=== PATIENT | female | born 1970 | race Caucasian/White ===

== ENCOUNTER 2024-04-20 21:59 | Emergency (ER) | payer OTHER ==
[~2024-04-20] VITALS: Ht 172.7 cm; Wt 98.6 kg
[2024-04-20] MEDS ORDERED: LEVOTHYROXINE100 MC2 PO (22:14)
[2024-04-20] MEDS ORDERED: ESTRADIOL1 MG PO (22:15)
[2024-04-20] MEDS ORDERED: methylPREDNISolone SOD SUCC 125 MG/2 ML VIAL IV ONE (22:15)
[2024-04-20] MEDS ORDERED: FAMOTIDINE 20 MG/ 2 ML VIAL IV ONE (22:15)
[2024-04-20] MEDS ORDERED: diphenhydrAMINE HCL 50 MG/ML VIAL IV ONE (22:15)
[2024-04-20 23:10] VITALS: BP 128/89
== END 2024-04-20 23:10 | disposition home or self-care (01) ==
LOC: ED 21:59
DX: T63.441A Toxic effect of venom of bees, accidental (unintentional), initial encounter (principal); R22.0 Localized swelling, mass and lump, head; E03.9 Hypothyroidism, unspecified; Z79.890 Hormone replacement therapy; Z79.899 Other long term (current) drug therapy; Z88.5 Allergy status to narcotic agent
CPT/HCPCS: 96374; 96375; 99282-25; J1200; J2919